=== PATIENT | female | born 1990 | race Caucasian/White ===

== ENCOUNTER 2017-02-25 18:26 | Emergency (ER) | payer OTHER ==
[~2017-02-25] VITALS: Ht 162.6 cm; Wt 101.0 kg
[~2017-02-25 18:26] MED LIST: PREN-39 PO
[2017-02-25 18:48] VITALS: Ht 162.6 cm; Wt 101.0 kg
[2017-02-25] MEDS ORDERED: LIDOCAINE 1% (MDV) 20 ML INJ SC ONE (21:00)
[2017-02-25] MEDS ORDERED: HYDROCODONE/APAP (5/325) TAB PO ONE (21:00)
--- NOTE | 2017-02-25 21:28 | ERD ---
ER Documentation Chief Complaint Date/Time DATE: 02/25/17 TIME: 21:25 Chief Complaint left pinky laceration, bleeding controlled HPI This a 26-year-old female who presents the emergency department today complaining of a left hand laceration that she sustained earlier this evening. Patient states that a nasal jar broke in her hand. States she is up-to-date on her tetanus that she had 3 years ago. Has not taken medication for the pain. Denies any fevers or chills. Denies any previous trauma. ROS All systems reviewed and are negative except as per history of present illness. Medications Home Meds Active Scripts Cephalexin* (Keflex*) 500 Mg Capsule, 500 MG PO QID for 7 Days, CAP Prov:TERENCE MAO PA-C 02/25/17 Ibuprofen* (Motrin*) 600 Mg Tab, 600 MG PO Q6, #30 TAB Prov:TERENCE MAO PA-C 02/25/17 Hydrocodone/Acetaminophen ([place]lejo 5-325 Tablet) 1 Each Tablet, 1 TAB PO Q6H Y for PAIN, #7 TAB Prov:TERENCE MAO PA-C 02/25/17 Reported Medications Vits W-Ca,Fe,Fa(<1MG) ( Vitamins) 1 Tab Tablet, 1 TAB PO DAILY 03/18/14 Allergies Allergies: Coded Allergies: No Known Drug Allergies (Verified Allergy, Unknown, 02/25/17) PMhx/Soc History of Surgery: Yes (C/SECTION X2) Anesthesia Reaction: No Hx Neurological Disorder: No Hx Respiratory Disorders: No Hx Cardiac Disorders: No Hx Psychiatric Problems: No Hx Miscellaneous Medical Probl: No Hx Alcohol Use: No Hx Substance Use: No Hx Tobacco Use: No Smoking Status: Never smoker Physical Exam Vitals Vital Signs Date Time Temp Pulse Resp B/P Pulse Ox O2 Delivery O2 Flow Rate FiO2 02/25/17 18:48 98.3 67 17 150/88 99 Physical Exam Const: Cooperative, no acute distress Head: Atraumatic Eyes: Normal Conjunctiva ENT: Normal External Ears, Nose and Mouth. Neck: Full range of motion..~ No meningismus. Resp: Clear to auscultation bilaterally Cardio: Regular rate and rhythm, no murmurs skin: 1.5 cm laceration at DIP on volar aspect of left hand fifth digit Back: No midline or flank tenderness MSK: Left hand 1.5 cm laceration at the DIP on volar aspect of left hand fifth digit. No evidence of foreign body. No purulent drainage. No evidence of sialitis. Good cap refill. Distal neurovascularly intact. Full active range of motion of finger Neur: Awake and alert Psych: Normal Mood and Affect Results 24 hrs Current Medications Medications (Trade) Dose Ordered Sig/Melanie Route PRN Reason Start Time Stop Time Status Last Admin Dose Admin Lidocaine (Xylocaine 1% (Mdv) 20 ml) 20 ml ONCE ONCE SC 02/25/17 21:00 02/25/17 21:01 DC Acetaminophen/ Hydrocodone Bitart (Val[place] (5/325)) 1 tab ONCE ONCE PO 02/25/17 21:00 02/25/17 21:01 DC 02/25/17 21:02 DIAGNOSTIC IMAGING REPORT Patient: JOSE ARMANDO VELAZQUEZ : 1990 Age: 26 Sex: F MR #: [id number] DOS: 02/25/17 0000 Ordering MD: TERENCE MAO PA-C Location: [facility] Room/Bed: PROCEDURE: Left fifth digit. CLINICAL INDICATION: LacerateD left fifth digit with the last. TECHNIQUE: 3 views of the left fifth digit were performed. COMPARISON: No. FINDINGS: There is soft tissue swelling over the volar surface of the distal left fifth digit. The bony elements and joint spaces are normal. IMPRESSION: 1. No foreign body, fracture or dislocation involving the left fifth digit. RPTAT:AAJJ Physician Floyd Date Time Electronically viewed and signed by Physician Floyd on 02/25/2017 21:34 JM/ CC: TERENCE MAO PA-C Procedures/MDM This is a right-handed 26-year-old female who presents to the emergency department today for a laceration that she sustained on her left fifth digit earlier this evening with a jenny jar. Given that there was breakage of glass I did obtain images to rule out a retained foreign body. I also explained to the patient the risks and benefits of suturing the laceration and patient agreed to proceed. Patient is up-to-date on her tetanus vaccine. Patient tolerated procedure well and there were no complications. Per the radiology report images of the left fifth finger showed no foreign body , fracture dislocation involving the left fifth digit. Soft tissue swelling over the volar aspect of the distal left fifth digit Laceration Repair by me: Anesthesia: 1% lidocaine locally 3 CC Location: left finger Tendon/Joint/Nerves: No injury Foreign body: None detected after copious irrigation and exploration Technique: 5 Simple Interrupted Sutures 4.0 Nylon Complexity: No subcutaneous sutures/mucosal repair/ edge excision Post Closure Length: 1.5cm Patient's bleeding was easily controlled in the department and there is no indication of anemia. No evidence of compartment syndrome, neurologic injury, vascular injury, open joint, tendon laceration, or foreign body. Patient is appropriate for outpatient follow up. 48 hour wound check. Scar minimization instructions given. Patient was given Vallejo here in the emergency department. I will give her a prescription for Tylenol Motrin for home. She was instructed for a wound check in 48 hours. Also give her prescription for Keflex. She will return in 7-10 days for suture removal. At this time the patient is stable for discharge and outpatient management. Patient should follow up with their PCP in the next 1-2 days. They may return to the emergency department sooner for any persistent or worsening of symptoms. Patient understood and agreed with the plan. Departure Diagnosis: Primary Impression: Laceration Condition: TERENCE Argueta PA-C Feb 25, 2017 21:28
--- NOTE | 2017-02-25 21:34 | RADRPT ---
PROCEDURE: Left fifth digit. CLINICAL INDICATION: LacerateD left fifth digit with the last. TECHNIQUE: 3 views of the left fifth digit were performed. COMPARISON: No. FINDINGS: There is soft tissue swelling over the volar surface of the distal left fifth digit. The bony eleme nts and joint spaces are normal. IMPRESSION: 1. No foreign body, fracture or dislocation involving the left fifth digit. RPTAT:AAJJ Physician Floyd Date Time Electronically viewed and signed by Pantera Vazquez Physician on 02/25/2017 21:34 INO/
[2017-02-25] MEDS ORDERED: IBUP-1542 PO (22:29)
[2017-02-25] MEDS ORDERED: HYDR-906 PO (22:29)
[2017-02-25] MEDS ORDERED: CEPH-443 PO (22:30)
== END 2017-02-25 22:40 | disposition home or self-care (01) ==
LOC: FTE 18:26
DX: S61.217A Laceration without foreign body of left little finger without damage to nail, initial encounter (principal); W26.8XXA Contact with other sharp object(s), not elsewhere classified, initial encounter; Y92.9 Unspecified place or not applicable
CPT/HCPCS: 12001; 73140; Z7610